=== PATIENT | male | born 1995 | race Caucasian/White ===

== ENCOUNTER → 2016-06-26 | Outpatient (CLI) | payer BC, OTHER | LOC: BHSO 08:04 | DX: F41.1 Generalized anxiety disorder (principal) ==

== ENCOUNTER → 2016-12-24 | Outpatient (CLI) | payer BC, OTHER | LOC: BHSO 08:00 | DX: F33.41 Major depressive disorder, recurrent, in partial remission (principal) ==

== ENCOUNTER → 2017-07-07 | Outpatient (CLI) | payer BC | LOC: BHSO 08:04 | DX: F33.42 Major depressive disorder, recurrent, in full remission (principal) | CPT/HCPCS: G0463 ==

== ENCOUNTER → 2018-01-27 | Outpatient (CLI) | payer BC | LOC: BHSO 08:03 | DX: F41.1 Generalized anxiety disorder (principal) | CPT/HCPCS: G0463 ==

== ENCOUNTER → 2018-07-27 | Outpatient (CLI) | payer BC | LOC: BHSO 07:58 | DX: F41.1 Generalized anxiety disorder (principal) | CPT/HCPCS: G0463 ==

== ENCOUNTER → 2019-02-04 | Outpatient (CLI) | payer BC | LOC: BHSO 08:01 | DX: F41.1 Generalized anxiety disorder (principal) | CPT/HCPCS: G0463 ==

== ENCOUNTER → 2020-02-28 | Outpatient (CLI) | payer BC | LOC: BHSO 07:59 | DX: F41.1 Generalized anxiety disorder (principal) | CPT/HCPCS: G0463 ==